=== PATIENT | female | born 2000 | race Hispanic/Latino ===

== ENCOUNTER 2022-03-11 18:35 | Emergency (ER) | payer MEDICAID ==
[~2022-03-11] VITALS: Ht 149.9 cm; Wt 54.4 kg
[2022-03-11] MEDS ORDERED: TETANUS/DIPHTHERIA TOXOID [ADULT] 0.5 ML VIAL IM ONE ×2 (20:00→20:18)
[2022-03-11] MEDS ORDERED: CELE100 PO (20:54)
[2022-03-11] MEDS ORDERED: CEPH250C2 PO (20:54)
[2022-03-11] MEDS ORDERED: CEFAZOLIN SODIUM 1 GM VIAL IVP SCH (21:00)
[2022-03-11 21:10] VITALS: BP 115/68
== END 2022-03-11 21:22 | disposition home or self-care (01) ==
LOC: EDH 19:01
DX: S61.012A Laceration without foreign body of left thumb without damage to nail, initial encounter (principal); Z79.1 Long term (current) use of non-steroidal anti-inflammatories (NSAID); W26.0XXA Contact with knife, initial encounter; Y93.89 Activity, other specified; Y92.000 Kitchen of unspecified non-institutional (private) residence as the place of occurrence of the external cause; Y99.8 Other external cause status
CPT/HCPCS: 99284; 96374; 90714; 90471; 12001; J0690; 12011

== ENCOUNTER 2022-03-12 14:35 | Emergency (ER) | payer MEDICAID ==
[~2022-03-12] VITALS: Ht 157.5 cm; Wt 65.8 kg
[~2022-03-12 14:35] MED LIST: CELE100 PO; CEPH250C2 PO
[2022-03-12 14:38] VITALS: BP 137/83
== END 2022-03-12 15:42 | disposition home or self-care (01) ==
LOC: EDH 14:35
DX: S61.412A Laceration without foreign body of left hand, initial encounter (principal); Z79.1 Long term (current) use of non-steroidal anti-inflammatories (NSAID); W26.0XXA Contact with knife, initial encounter; Y93.G3 Activity, cooking and baking; Y92.89 Other specified places as the place of occurrence of the external cause; Y99.8 Other external cause status
CPT/HCPCS: 73130